=== PATIENT | female | born 1970 | race African-American/Black ===

== ENCOUNTER 2017-05-14 16:13 | Inpatient (IN) | payer MEDICAID ==
[~2017-05-14] VITALS: Ht 167.6 cm; Wt 66.2 kg
[~2017-05-14 16:13] MED LIST: ALBU17AE26; HYDR1TAB4; PXPC5
[2017-05-14] MEDS ORDERED: MORPHINE SULFATE 4 MG/ML CPJ (NOT FOR IM USE) IV STA (17:04)
[2017-05-14] MEDS ORDERED: SODIUM CHLORIDE 0.9% 1000ML BAG (SEPSIS BOLUS) IV ONE (17:15)
[2017-05-14] MEDS ORDERED: PIPERACILLIN SODIUM/TAZOBACTAM 4.5 G in DEXT 5% WATER 100 ML IV SCH (17:15)
[2017-05-14] MEDS ORDERED: VANCOMYCIN 1,500 MG in DEXT 5% WATER 250 ML IV SCH (17:15)
[2017-05-14 18:11] LABS: HEMATOCRIT. 24.7 % (36.0-48.0); HEMOGLOBIN. 7.8 g/dL (12.0-16.0); MEAN CORPUSCULAR HEMOGLOBIN 27.4 pg (28.0-32.0); MEAN CORPUSCULAR VOLUME 86.6 fL (81.0-99.0); PLATELET 403 x1000/uL (130-400); RED BLOOD CELL COUNT 2.85 mill/uL (4.2-5.4); RED CELL DISTRIBUTION WIDTH 16.6 % (11.6-14.6)
[2017-05-14 18:18] LABS: INR 1.3; PROTHROMBIN TIME 13.4 sec (9.4-11.6)
[2017-05-14 18:23] LABS: CARBON DIOXIDE 22 mEq/L (21-32); CHLORIDE 102 mEq/L (98-107)
[2017-05-14 18:27] LABS: TROPONIN I < 0.02 ng/mL (0.00-0.04)
[2017-05-14 18:53] LABS: CLARITY URINE CLOUDY (CLEAR); COLOR URINE YELLOW (YELLOW); GLUCOSE URINE NEGATIVE (NEGATIVE); KETONES URINE NEGATIVE (NEGATIVE); LEUKOCYTE ESTERASE URINE 1+ (NEGATIVE); NITRITE URINE NEGATIVE (NEGATIVE); OCCULT BLOOD URINE NEGATIVE (NEGATIVE); PROTEIN URINE 2+ (NEGATIVE); SPECIFIC GRAVITY URINE 1.014 (1.005-1.030)
[2017-05-14 18:53] LABS: HCG SCREEN NEGATIVE
[2017-05-14 19:16] LABS: PLATELET ESTIMATE SLIGHTLY INCREASED
[2017-05-14] MEDS ORDERED: MAGNESIUM/ALUMINUM HYDROXIDE/SIMETHICONE 30ML UDC PO PRN (20:30)
[2017-05-14] MEDS ORDERED: CLONIDINE 0.1MG TABLET PO PRN (20:30)
[2017-05-14] MEDS ORDERED: IPRATROPIUM/ALBUTEROL 0.5-3(2.5)MG/3ML NEB INH PRN (20:30)
[2017-05-14] MEDS ORDERED: DOCUSATE SODIUM 100MG CAPSULE PO PRN (20:30)
[2017-05-14] MEDS ORDERED: ACETAMINOPHEN 325MG TABLET PO PRN (20:30)
[2017-05-14] MEDS ORDERED: ONDANSETRON HCL 4MG/2ML VIAL IV PRN (20:30)
[2017-05-14] MEDS ORDERED: LORAZEPAM 2MG/ML CPJ IV PRN (20:30)
[2017-05-14] MEDS ORDERED: GUAIFENESIN 200MG/10ML SUGAR FREE UDC PO PRN (20:30)
[2017-05-14] MEDS: DEXT 5%/0.45% NACL 1000ML 1,000 ML IV SCH ×2 (20:49→23:19)
[2017-05-14 22:15] VITALS: BP 89/56
[2017-05-14] MEDS ORDERED: ZOLPIDEM TARTRATE 5MG TABLET PO PRN (22:30)
[2017-05-14] MEDS ORDERED: NA PHOS,M-B/NA PHOS,DI-BA ENEMA 118ML PR PRN (23:00)
[2017-05-14] MEDS: FAMOTIDINE 20MG/2ML VIAL IV SCH (23:16)
[2017-05-15] VITALS (10 sets, daily range): BP systolic 95–158; BP diastolic 45–70
[2017-05-15 00:38] LABS: TOTAL IRON BINDING CAPACITY 194 ug/dL (250-450)
[2017-05-15 00:41] LABS: CREATINE KINASE 46 IU/L (26-192); CREATINE KINASE MB FRACTION 0.6 ng/mL (0.5-3.6); TROPONIN I < 0.02 ng/mL (0.00-0.04)
[2017-05-15] MEDS: PIPERACILLIN/TAZ 3.375G PREMIX 50 ML IV SCH ×3 (00:43→17:52)
[2017-05-15] MEDS: ALBUMIN HUMAN 25GM/100ML (25%) IV SCH ×3 (00:43→16:43)
[2017-05-15] MEDS ORDERED: VANCOMYCIN 1 G PREMIX 200 ML IV NR (01:00)
[2017-05-15] MEDS: TRAMADOL 50MG TABLET PO PRN ×2 (03:50→20:38)
[2017-05-15] MEDS: MORPHINE SULFATE 4 MG/ML CPJ (NOT FOR IM USE) IV PRN ×5 (05:11→22:47)
[2017-05-15 07:17] LABS: CREATINE KINASE 36 IU/L (26-192); CREATINE KINASE MB FRACTION 0.7 ng/mL (0.5-3.6); TROPONIN I < 0.02 ng/mL (0.00-0.04)
[2017-05-15 08:39] LABS: FOLIC ACID (FOLATE) SERUM 11.5 ng/mL (>5.38)
[2017-05-15] MEDS: ENOXAPARIN 40MG/0.4ML SYR SUBCUT SCH (09:00)
[2017-05-15] MEDS: FAMOTIDINE 20MG/2ML VIAL IV SCH (10:02)
[2017-05-15] MEDS ORDERED: VANCOMYCIN 500 MG PREMIX 100 ML IV SCH (13:00)
[2017-05-15] MEDS ORDERED: OSELTAMIVIR XX SCH (15:30)
[2017-05-15] MEDS ORDERED: PAMIDRONATE DISODIUM 90 MG in SODIUM CHLORIDE 0.9% 500 ML IV NR (18:00)
[2017-05-15] MEDS: DEXT 5%/0.45% NACL 1000ML 1,000 ML IV SCH (19:00)
[2017-05-15] MEDS: DIPHENHYDRAMINE 50MG/ML VIAL IV PRN ×2 (20:37→23:02)
[2017-05-15] MEDS: OSELTAMIVIR PHOSPHATE 6 MG/1 ML PO SCH (21:11)
[2017-05-16] VITALS (20 sets, daily range): BP systolic 93–145; BP diastolic 42–89
[2017-05-16] MEDS: IPRATROPIUM/ALBUTEROL 0.5-3(2.5)MG/3ML NEB HHN SCH ×6 (00:47→20:46)
[2017-05-16] MEDS: PIPERACILLIN/TAZ 3.375G PREMIX 50 ML IV SCH ×3 (01:37→18:50)
[2017-05-16] MEDS: DEXT 5%/0.45% NACL 1000ML 1,000 ML IV SCH (04:51)
[2017-05-16] MEDS: MORPHINE SULFATE 4 MG/ML CPJ (NOT FOR IM USE) IV PRN ×4 (04:52→20:11)
[2017-05-16] MEDS: DIPHENHYDRAMINE 50MG/ML VIAL IV PRN ×4 (04:53→20:10)
[2017-05-16 05:58] LABS: BASOPHILS % 0.8 % (0.0-2.0); EOSINOPHILS % 1.5 % (0.0-5.0); LYMPHOCYTES % 9.9 % (20.0-50.0); MEAN CORPUSCULAR HEMOGLOBIN 28.1 pg (28.0-32.0); MEAN CORPUSCULAR VOLUME 87.5 fL (81.0-99.0); MEAN PLATELET VOLUME 7.3 fl (7.4-10.4); MONOCYTES % 13.1 % (2.0-8.0); NEUTROPHILS % 74.7 % (40.0-76.0); PLATELET 331 x1000/uL (130-400); RED BLOOD CELL COUNT 2.13 mill/uL (4.2-5.4); RED CELL DISTRIBUTION WIDTH 16.6 % (11.6-14.6)
[2017-05-16 06:54] LABS: HEMATOCRIT. 18.6 % (36.0-48.0)
[2017-05-16] MEDS: FAMOTIDINE 20MG/2ML VIAL IV SCH (09:00)
[2017-05-16] MEDS: ENOXAPARIN 40MG/0.4ML SYR SUBCUT SCH (09:00)
[2017-05-16] MEDS: OSELTAMIVIR PHOSPHATE 6 MG/1 ML PO SCH ×2 (09:22→21:56)
[2017-05-16] MEDS ORDERED: MORPHINE SULFATE 4 MG/ML CPJ (NOT FOR IM USE) IV SCH (11:00)
[2017-05-16] MEDS ORDERED: HYDROCODONE/ACETAMINOPHEN 10/325MG TABLET PO PRN (11:00)
[2017-05-16] MEDS: VANCOMYCIN 750 MG PREMIX 150 ML IV SCH (11:13)
[2017-05-16] MEDS ORDERED: VANCOMYCIN 500 MG PREMIX 100 ML IV SCH (12:00)
[2017-05-17] VITALS (13 sets, daily range): BP systolic 82–168; BP diastolic 47–94
[2017-05-17] MEDS: DIPHENHYDRAMINE 50MG/ML VIAL IV PRN ×6 (00:12→21:03)
[2017-05-17] MEDS: MORPHINE SULFATE 4 MG/ML CPJ (NOT FOR IM USE) IV PRN ×6 (00:15→21:09)
[2017-05-17] MEDS: DEXT 5%/0.45% NACL 1000ML 1,000 ML IV SCH (00:16)
[2017-05-17] MEDS: IPRATROPIUM/ALBUTEROL 0.5-3(2.5)MG/3ML NEB HHN SCH ×6 (00:57→20:25)
[2017-05-17] MEDS: PIPERACILLIN/TAZ 3.375G PREMIX 50 ML IV SCH ×3 (02:57→17:16)
[2017-05-17] MEDS: VANCOMYCIN 750 MG PREMIX 150 ML IV SCH ×2 (05:05→23:55)
[2017-05-17 05:43] LABS: HEMATOCRIT. 27.8 % (36.0-48.0); HEMOGLOBIN. 8.8 g/dL (12.0-16.0); MEAN CORPUSCULAR HEMOGLOBIN 27.8 pg (28.0-32.0); MEAN CORPUSCULAR VOLUME 87.5 fL (81.0-99.0); RED BLOOD CELL COUNT 3.17 mill/uL (4.2-5.4); RED CELL DISTRIBUTION WIDTH 17.5 % (11.6-14.6)
[2017-05-17 06:17] LABS: PLATELET ESTIMATE SLIGHTLY INCREASED
[2017-05-17 06:19] LABS: MEAN PLATELET VOLUME 8.1 fl (7.4-10.4); PLATELET 410 x1000/uL (130-400)
[2017-05-17] MEDS: OSELTAMIVIR PHOSPHATE 6 MG/1 ML PO SCH ×2 (08:49→21:02)
[2017-05-17] MEDS: SODIUM CHLORIDE 0.9% 1,000 ML IV SCH ×2 (08:50→15:31)
[2017-05-17] MEDS: POTASSIUM CHLORIDE 20MEQ TABLET SR PO SCH (08:50)
[2017-05-17] MEDS: ENOXAPARIN 40MG/0.4ML SYR SUBCUT SCH (08:50)
[2017-05-17] MEDS: FUROSEMIDE 40MG/4ML VIAL IV SCH ×2 (08:50→21:10)
[2017-05-17] MEDS: FAMOTIDINE 20MG/2ML VIAL IV SCH ×2 (08:50→21:02)
[2017-05-17] MEDS ORDERED: FUROSEMIDE 100MG/10ML VIAL IVP SCH (09:00)
[2017-05-17] MEDS: CALCITONIN,SALMON, 3.7 ML NASAL SPRAY ONENSTRL SCH (11:22)
[2017-05-18] VITALS (8 sets, daily range): BP systolic 134–164; BP diastolic 57–91
[2017-05-18] MEDS: PIPERACILLIN/TAZ 3.375G PREMIX 50 ML IV SCH ×3 (00:02→11:50)
[2017-05-18] MEDS: MORPHINE SULFATE 4 MG/ML CPJ (NOT FOR IM USE) IV PRN ×3 (00:07→09:46)
[2017-05-18] MEDS: IPRATROPIUM/ALBUTEROL 0.5-3(2.5)MG/3ML NEB HHN SCH ×3 (01:00→07:28)
[2017-05-18] MEDS: DIPHENHYDRAMINE 50MG/ML VIAL IV PRN ×2 (04:36→09:45)
[2017-05-18 07:39] LABS: CARBON DIOXIDE 24 mEq/L (21-32); CHLORIDE 104 mEq/L (98-107)
[2017-05-18] MEDS ORDERED: NICOTINE 14MG PATCH TD SCH (09:00)
[2017-05-18] MEDS: FUROSEMIDE 40MG/4ML VIAL IV SCH (09:40)
[2017-05-18] MEDS: CALCITONIN,SALMON, 3.7 ML NASAL SPRAY ONENSTRL SCH (09:40)
[2017-05-18] MEDS: OSELTAMIVIR PHOSPHATE 6 MG/1 ML PO SCH (09:41)
[2017-05-18] MEDS: POTASSIUM CHLORIDE 20MEQ TABLET SR PO SCH (09:45)
[2017-05-18] MEDS: FAMOTIDINE 20MG/2ML VIAL IV SCH (09:45)
[2017-05-18] MEDS: ENOXAPARIN 40MG/0.4ML SYR SUBCUT SCH (09:47)
[2017-05-18] MEDS ORDERED: SODIUM CHLORIDE 0.9% 10ML VIAL ONE (11:56)
[2017-05-18] MEDS ORDERED: IOHEXOL-300 100 ML BOTTLE ONE (11:56)
== END 2017-05-18 12:35 | disposition home or self-care (01) | DRG 463 ==
LOC: ER 16:21 → EDBEDREQ 17:11 → EDBEDREQTM 17:11 → 5EST 20:27 → EDBEDREQTM 20:28 → EDBEDREQ 20:28 → ENRESERV 20:46 → CANRESERV 20:46 → ENRESERV 21:07
PROVIDERS: ADMIT Internal Medicine; ATTEND Internal Medicine
PROC: 30233N1 Transfusion of Nonautologous Red Blood Cells into Peripheral Vein, Percutaneous Approach (ICD-10-PCS; principal; 2017-05-16)
DX: N39.0 Urinary tract infection, site not specified (principal); N17.0 Acute kidney failure with tubular necrosis; E43 Unspecified severe protein-calorie malnutrition; E83.52 Hypercalcemia; E87.1 Hypo-osmolality and hyponatremia; D64.9 Anemia, unspecified; I10 Essential (primary) hypertension; Z93.0 Tracheostomy status; Z79.899 Other long term (current) drug therapy; Z68.23 Body mass index [BMI] 23.0-23.9, adult
CPT/HCPCS: 36415; 71010; 80048; 80053; 80202; 81001; 82550; 82553; 82607; 82746; 83036; 83540; 83550; 83605; 83615; 84484; 84703; 85025; 85610; 86850; 86900; 86920; 87040; 87086; 93005; 93970; 94640; 94664; 96365; 96375; 99291; A4216; J1200; J1650; J1940; J2060; J2270; J2430; J2543; J3370; J3490; J7030; J7040; J7050; J7060; J7620; P9016; P9047; Q9967